=== PATIENT | female | born 1995 ===

== ENCOUNTER 2024-12-27 15:39 | Inpatient (IN) | payer BC ==
[~2024-12-27] VITALS: Ht 154.9 cm; Wt 60.8 kg
[2024-12-27] VITALS (13 sets, daily range): BP systolic 125–161; BP diastolic 85–103
[2024-12-27] MEDS ORDERED: ACET-897 PO (16:03)
[2024-12-27] MEDS ORDERED: PRENTAB9 PO (16:03)
[2024-12-27] MEDS ORDERED: HOME MED LIST COMPLETE! XX SCH (16:05)
[2024-12-27 16:40] LABS: PLATELET COUNT, AUTOMATED 226 10^3/uL (150-450)
[2024-12-27 16:54] LABS: TOTAL PROTEIN,RANDOM URINE 9.4 MG/DL (0.0-14.0)
[2024-12-27 17:12] LABS: LDH LACTATE DEHYDROGENASE 140 U/L (120-246)
[2024-12-27 17:13] LABS: ALT/SGPT 21 U/L (7.0-40); AST/SGOT 17 U/L (<34); CALCIUM LEVEL 8.4 MG/DL (8.5-10.1); CARBON DIOXIDE LEVEL 20 MMOL/L (20-31); CHLORIDE LEVEL 106 MMOL/L (98-107); CREATININE FOR GFR 0.55 MG/DL (0.55-1.30); GLOMERULAR FILTRATION RATE > 90.0 (>60); POTASSIUM SERUM 3.4 MMOL/L (3.5-5.1); SODIUM LEVEL 136 MMOL/L (136-145)
[2024-12-27] MEDS ORDERED: ACETAMINOPHEN 500 MG TAB As Ordered ONE (18:03)
[2024-12-27] MEDS: ACETAMINOPHEN 500 MG TAB PO ONE (18:05)
[2024-12-27] MEDS ORDERED: TRANEXAMIC ACID INJection 1,000 MG in NS 100 ML IV PRN (20:25)
[2024-12-27] MEDS: ceFAZolin SODIUM 2 GM in DEXTROSE 5% (D5W) ADV/MINI-BAG 50 ML IV ONE (20:25)
[2024-12-27] MEDS ORDERED: LIDOCAINE 1% MDV 20 ML VIAL INFIL PRN (20:25)
[2024-12-27] MEDS: BICITRA 30 ML SOLN UDC PO ONE (20:25)
[2024-12-27] MEDS ORDERED: OXYTOCIN DRIP 30 UNITS in IV 1 EA IV PRN (20:25)
[2024-12-27 20:46] LABS: PLATELET COUNT, AUTOMATED 236 10^3/uL (150-450)
[2024-12-27] MEDS ORDERED: ONDANSETRON 4MG 2ML VIAL As Ordered ONE (20:50)
[2024-12-27] MEDS ORDERED: KETOROLAC 30 MG/ML 1 ML VIAL As Ordered ONE (20:50)
[2024-12-27] MEDS ORDERED: MORPHINE PRES-FREE INJ 10 MG/10 ML VIAL As Ordered ONE (20:50)
[2024-12-27] MEDS ORDERED: OXYTOCIN 30UNITS IN 0.9% NaCl 500ML IV BAG As Ordered ONE (20:53)
[2024-12-27] MEDS ORDERED: ACETAMINOPHEN 1000MG/100ML IV BAG As Ordered ONE (20:53)
[2024-12-27] MEDS ORDERED: diphenhydrAMINE 50 MG/ML VIAL IV PRN (21:20)
[2024-12-27] MEDS ORDERED: MEPERIDINE 25 MG/ML 1 ML VIAL IV PRN (21:20)
[2024-12-27] MEDS: SLF 3 ML SYR IV SCH (21:20)
[2024-12-27] MEDS ORDERED: HYDROMORPHONE HCL 0.5 MG/0.5 ML SYRINGE IV PRN (21:20)
[2024-12-27] MEDS ORDERED: NALOXONE INJ 0.4 MG/1 ML VIAL IV PRN ×2 (21:20)
[2024-12-27] MEDS ORDERED: NALBUPHINE HCL 10 MG/ML 1 ML AMP IV PRN (21:20)
[2024-12-27] MEDS: traMADol 50 MG TAB PO ONE (21:20)
[2024-12-27] MEDS ORDERED: **NOTE PATIENT COMMENT** MISC XX SCH (21:20)
[2024-12-27] MEDS ORDERED: PHENYLephrine 500MCG 5ML (100MCG/ML) SYRINGE As Ordered ONE (21:35)
[2024-12-27 21:49] LABS: HEPATITIS C VIRUS ABY INDEX 0.04 INDEX (<0.8)
[2024-12-27 21:57] LABS: CORD GAS ABE V -4.3; CORD GAS HCO3 V 21.7 MMOL/L; CORD GAS O2 SAT V 85.3 %; CORD GAS PCO2 V 43.3 mmHg; CORD GAS PH V 7.318 UNITS; CORD GAS PO2 V 41.8 mmHg; CORD GAS SBC V 20.6 MMOL/L; CORD GAS TCO2 V 23.0 MMOL/L
[2024-12-27 21:58] LABS: CORD GAS ABE A -2.0; CORD GAS HCO3 A 24.6 MMOL/L; CORD GAS O2 SAT A 40.0 %; CORD GAS PCO2 A 49.0 mmHg; CORD GAS PH A 7.318 UNITS; CORD GAS PO2 A 18.3 mmHg; CORD GAS SBC A 21.4 MMOL/L; CORD GAS TCO2 A 26.1 MMOL/L
[2024-12-27] MEDS ORDERED: MORPHINE 4 MG/ML 1 ML VIAL IV PRN (22:30)
[2024-12-27] MEDS ORDERED: MOM 30 ML SUSPENSION UDC PO PRN (22:30)
[2024-12-27] MEDS ORDERED: CALCIUM CARBONATE 500 MG CHEW U/D PO PRN (22:30)
[2024-12-27] MEDS ORDERED: RHOGAM 300MCG (1500IU) INJ IM SCH (22:30)
[2024-12-27] MEDS: OXYTOCIN DRIP 30 UNITS in IV 1 EA IV SCH (22:30)
[2024-12-27] MEDS ORDERED: ANUSOL HC CREAM 30 GM TOP PRN (22:30)
[2024-12-27] MEDS: LR 1,000 ML IV SCH (22:30)
[2024-12-27] MEDS ORDERED: IBUP80TA PO (22:37)
[2024-12-27] MEDS ORDERED: COLA100C5 PO (22:37)
[2024-12-27] MEDS ORDERED: PERCOCET PO (22:37)
[2024-12-27] MEDS: ACETAMINOPHEN *IV* 1,000 MG in IV 1 EA IV ONE (22:40)
[2024-12-28] VITALS (29 sets, daily range): BP systolic 63–144; BP diastolic 36–92; TEMP 96.8–98.8; O2SAT 98–100
[2024-12-28] MEDS ORDERED: diphenhydrAMINE 50 MG/ML VIAL IM PRN (00:40)
[2024-12-28] MEDS: diphenhydrAMINE 50 MG/ML VIAL IV PRN (01:24)
[2024-12-28] MEDS: SERTRALINE HCL 25 MG TABLET PO SCH (01:30)
[2024-12-28 01:31] LABS: HIV 1&2 SCREEN NEGATIVE (NEGATIVE)
[2024-12-28 02:36] LABS: PLATELET COUNT, AUTOMATED 153 10^3/uL (150-450)
[2024-12-28 03:04] LABS: INR 1.07
[2024-12-28] MEDS: KETOROLAC 30 MG/ML 1 ML VIAL IV SCH (04:30)
[2024-12-28 06:24] LABS: PLATELET COUNT, AUTOMATED 133 10^3/uL (150-450)
[2024-12-28] MEDS: ACETAMINOPHEN 500 MG TAB PO PRN (06:29)
[2024-12-28 06:47] LABS: INR 1.28
[2024-12-28 06:54] LABS: ALT/SGPT 18.0 U/L (7.0-40); AST/SGOT 28.0 U/L (<34); CALCIUM LEVEL 7.6 MG/DL (8.5-10.1); CARBON DIOXIDE LEVEL 21.0 MMOL/L (20-31); CHLORIDE LEVEL 107.0 MMOL/L (98-107); CREATININE FOR GFR 0.92 MG/DL (0.55-1.30); GLOMERULAR FILTRATION RATE 86.4 (>60); POTASSIUM SERUM 4.3 MMOL/L (3.5-5.1); SODIUM LEVEL 136.0 MMOL/L (136-145)
[2024-12-28] MEDS ORDERED: LR 1,000 ML IV SCH (08:05)
[2024-12-28] MEDS: MAG Sulf (OBGYN) 20GM/500ML 20,000 MG in IV 1 EA IV SCH (08:13)
[2024-12-28] MEDS: PRENATAL VITAMINS CHEWABLE TABLET PO SCH (10:22)
[2024-12-28] MEDS: DOCUSATE SODIUM 100 MG CAPSULE PO SCH (10:22)
[2024-12-28] MEDS: FERROUS SULFATE 325 MG TAB PO SCH (10:23)
[2024-12-28 13:33] LABS: PLATELET COUNT, AUTOMATED 117 10^3/uL (150-450)
[2024-12-28 13:50] LABS: INR 1.02
[2024-12-28 14:00] LABS: LDH LACTATE DEHYDROGENASE 452 U/L (120-246)
[2024-12-28 14:05] LABS: ALT/SGPT 21 U/L (7.0-40); AST/SGOT 38 U/L (<34); CALCIUM LEVEL 7.6 MG/DL (8.5-10.1); CARBON DIOXIDE LEVEL 23 MMOL/L (20-31); CHLORIDE LEVEL 104 MMOL/L (98-107); CREATININE FOR GFR 0.78 MG/DL (0.55-1.30); GLOMERULAR FILTRATION RATE > 90.0 (>60); POTASSIUM SERUM 3.7 MMOL/L (3.5-5.1); SODIUM LEVEL 136 MMOL/L (136-145)
[2024-12-28 19:17] LABS: PLATELET COUNT, AUTOMATED 123 10^3/uL (150-450)
[2024-12-28 19:29] LABS: INR 0.93
[2024-12-28 19:44] LABS: LDH LACTATE DEHYDROGENASE 369 U/L (120-246)
[2024-12-28 19:48] LABS: ALT/SGPT 18 U/L (7.0-40); AST/SGOT 32 U/L (<34); CALCIUM LEVEL 6.2 MG/DL (8.5-10.1); CARBON DIOXIDE LEVEL 24 MMOL/L (20-31); CHLORIDE LEVEL 104 MMOL/L (98-107); CREATININE FOR GFR 0.68 MG/DL (0.55-1.30); GLOMERULAR FILTRATION RATE > 90.0 (>60); POTASSIUM SERUM 3.8 MMOL/L (3.5-5.1); SODIUM LEVEL 137 MMOL/L (136-145)
[2024-12-29] VITALS (15 sets, daily range): BP systolic 129–152; BP diastolic 70–98; O2SAT 97–100
[2024-12-29] MEDS: IBUPROFEN 800 MG TAB PO SCH (00:12)
[2024-12-29] MEDS: PERCOCET 5MG/325MG TAB PO PRN ×2 (01:58→23:41)
[2024-12-29 07:30] LABS: PLATELET COUNT, AUTOMATED 115 10^3/uL (150-450)
[2024-12-29 07:47] LABS: INR 0.81
[2024-12-29 08:04] LABS: ALT/SGPT 18 U/L (7.0-40); AST/SGOT 30 U/L (<34); CALCIUM LEVEL 5.8 MG/DL (8.5-10.1); CARBON DIOXIDE LEVEL 24 MMOL/L (20-31); CHLORIDE LEVEL 103 MMOL/L (98-107); CREATININE FOR GFR 0.57 MG/DL (0.55-1.30); GLOMERULAR FILTRATION RATE > 90.0 (>60); POTASSIUM SERUM 3.5 MMOL/L (3.5-5.1); SODIUM LEVEL 136 MMOL/L (136-145)
[2024-12-29] MEDS: MEASLES,MUMPS,RUBELLA VACCINE INJ (MMR-II) SC.IMMUN ONE (08:17)
[2024-12-29] MEDS: ONDANSETRON 4MG 2ML VIAL IV PRN (08:29)
[2024-12-29] MEDS: SIMETHICONE 80MG CHEW TAB PO PRN (15:41)
[2024-12-30 02:00] VITALS: BP 134/81; O2SAT 98
[2024-12-30 05:59] VITALS: BP 140/86; O2SAT 98
[2024-12-30 10:00] VITALS: BP 140/85; O2SAT 98
[2024-12-30 11:12] LABS: PLATELET COUNT, AUTOMATED 136 10^3/uL (150-450)
[2024-12-30] MEDS: NS (Normal Saline) 0.9% 1,000 ML IV ONE (12:29)
[2024-12-30] MEDS ORDERED: IRON SUCROSE 100 MG/5 ML VIAL IV ONE ×2 (13:00)
[2024-12-30] MEDS: IRON SUCROSE 100 MG/5 ML VIAL IVP ONE (13:21)
[2024-12-30 15:10] VITALS: BP 144/84; O2SAT 98
== END 2024-12-30 17:00 | disposition home or self-care (01) | DRG 540 ==
LOC: M LDO 15:39 → UNMERGE 20:20 → MERGE 20:20 → M LDI 20:20 → M OBS 12-28 00:05 → M LDI 12-28 07:45 → M OBS 12-29 12:05
PROVIDERS: ADMIT Obstetrics & Gynecology; ATTEND Obstetrics & Gynecology
PROC: 0UB70ZZ Excision of Bilateral Fallopian Tubes, Open Approach (ICD-10-PCS; 2024-12-27)
PROC: 10D00Z1 Extraction of Products of Conception, Low, Open Approach (ICD-10-PCS; principal; 2024-12-27 21:00)
DX: O14.14 Severe pre-eclampsia complicating childbirth (principal); O75.89 Other specified complications of labor and delivery; Z3A.34 34 weeks gestation of pregnancy; O34.211 Maternal care for low transverse scar from previous cesarean delivery; Z37.0 Single live birth; Z30.2 Encounter for sterilization